=== PATIENT | female | born 1960 | race Caucasian/White ===

== ENCOUNTER → 2017-09-18 08:53 | Outpatient (CLI) | payer OTHER ==
--- NOTE | 2017-10-03 08:55 | EC ---
PATIENT:SOLITARIO NINO DATE OF SERVICE: 09/18/17 SEX: F MEDICAL RECORD: [id number] DATE OF : 62 LOCATION:DREPLACED BY [facility] AGE OF PATIENT: 56 ADMISSION DATE: 09/18/17 REFERRING PHYSICIAN: INTERPRETING PHYSICIAN: DUSTIN KING MD ECHOCARDIOGRAM REPORT ECHO CHARGES 4 ECHO COMPLETE CLINICAL DIAGNOSIS: CP/SVT ECHOCARDIOGRAPHIC MEASUREMENTS (adult normal given) AC root (d.<3.7cm) 2.5 cm LV Septum d (<1.2 cm> 1.3 cm Valve Excursion 1.8 cm LV Septum (systole) 1.9 cm Left Atria (s.<4.0cm> 3.3 cm LVPW d(<1.2cm) 1.2 cm RV (d.<2.3cm) 2.4 cm LVPW (sytole) 1.6 cm LV diastole(<5.6CM) 5.1 cm MV E-F(>70mm/sec) cm LV systole 3.1 cm LVOT Diameter 1.9 cm MV exc.(>10mm) cm Est.ejection fraction (50-75%) % Pericardial Effusion N DOPPLER: LVIT cm/sec A 60.0 cm/sec E 85.0 cm/sec LA cm/sec RVSP 30.1 mmHg LVOT 155 cm/sec AOP1/2T m/s Asc. Ao 192 cm/sec RVOT 64.0 cm/sec RA cm/sec PA 111 cm/sec AV Gradient Peak 15.0 mmHg AV Mean 7.5 mmHg AV Area 1.9 cm MV Gradient Peak 4.5 mmHg MV Mean 1.8 mmHg MV Area cm COMMENTS: Goldbeater: Rahul ANTHONYOE Goldbeater: Mell King TAPE# PACS DATE OF SERVICE: 09/18/2017 PROCEDURE: Transthoracic echocardiogram. FINDINGS: 1. Left ventricle is normal size, normal function and flow characteristics are normal. Ejection fraction is 60%. 2. The left atrium is normal size, normal function. 3. The mitral valve is structurally normal. No significant regurgitation. 4. Tricuspid valve has trace tricuspid regurgitation with normal right ECHOCARDIOGRAM REPORT [id number] SOLITARIO NINO ventricular systolic pressures. 5. Pericardium is normal. 6. The pulmonic valve has trace pulmonic insufficiency. 7. The right atrium is normal size, normal function. 8. The right ventricle is normal size, normal function. CONCLUSIONS: Normal transthoracic echocardiogram. TRANSINT:[id number] Voice Confirmation ID: [id number] DOCUMENT ID: [id number] DUSTIN KING MD at 0855 CC: [id number] DICTATION DATE: 09/19/17 1017 DIRECTOR OF AVIATION: 09/19/17 1411 DEP CLI 09/18/17 [place] [id number] [place] [id number]
== END | disposition home or self-care (01) ==
LOC: D.ECHO 08-31 09:30
DX: I47.1 Supraventricular tachycardia (principal); R07.9 Chest pain, unspecified

== ENCOUNTER 2020-06-27 19:30 | Emergency (ER) | payer OTHER ==
[~2020-06-27] VITALS: Ht 172.7 cm; Wt 86.4 kg
[2020-06-27 19:35] VITALS: Ht 172.7 cm; Wt 86.4 kg
[2020-06-27] MEDS ORDERED: NEXIUM40 MG (19:36)
[2020-06-27] MEDS ORDERED: ULTRAM50 MG PO (20:35)
[2020-06-27 20:55] VITALS: BP 157/80
== END 2020-06-27 20:35 | disposition home or self-care (01) ==
LOC: D.ER 19:30
DX: S60.00XA Contusion of unspecified finger without damage to nail, initial encounter (principal); S80.01XA Contusion of right knee, initial encounter; S43.401A Unspecified sprain of right shoulder joint, initial encounter; W19.XXXA Unspecified fall, initial encounter; Y93.9 Activity, unspecified; Y92.9 Unspecified place or not applicable